=== PATIENT | female | born 1945 | race Two or more races ===

== ENCOUNTER 2017-11-21 09:21 | Outpatient (CLI) | payer OTHER | END 2017-11-21 09:31 | disposition home or self-care (01) | LOC: NUCLEAR 09:21 | DX: I87.2 Venous insufficiency (chronic) (peripheral) (principal); I73.9 Peripheral vascular disease, unspecified ==

== ENCOUNTER 2017-11-23 09:20 | Outpatient (CLI) | payer OTHER | END 2017-11-23 09:31 | disposition home or self-care (01) | LOC: NUCLEAR 09:20 | DX: I73.9 Peripheral vascular disease, unspecified (principal); I87.2 Venous insufficiency (chronic) (peripheral) ==

== ENCOUNTER 2017-11-27 15:19 | Outpatient (CLI) | payer OTHER | END 2017-11-27 16:33 | disposition home or self-care (01) | LOC: RAD 15:19 | DX: M25.571 Pain in right ankle and joints of right foot (principal); E11.51 Type 2 diabetes mellitus with diabetic peripheral angiopathy without gangrene ==

== ENCOUNTER 2018-12-10 12:46 | Outpatient (CLI) | payer OTHER | END 2018-12-10 14:46 | disposition home or self-care (01) | LOC: RAD 12:46 | DX: S20.212A Contusion of left front wall of thorax, initial encounter (principal) ==